=== PATIENT | male | born 1990 | race Hispanic/Latino ===

== ENCOUNTER 2020-11-06 12:38 | Emergency (ER) | payer OTHER, SELFPAY ==
--- OUTSIDE RECORDS SUMMARY | 2020-11-06 12:48 | XMS REPORT | Continuity of Care Document ---
:1990 Author Organization [facility] t Address [address] [place] [address] Care Team Providers Name Role Phone Bia Jean Attending Clinician Donna Morris Attending Clinician Bean Silva Attending Clinician Payers Payer Name Policy Type Policy Number Effective Date Expiration Date S ource Problems Condition Condition Condition Status Onset Resolution Last Treating Co mments Source Name Details Category Date Date Treatment Clinician Date ELEVATED Condition Active 2014-08-29 M emoria LIVER 08-29 11:00:58 l ENZYMES ELEVATED 00:00: Melissa nn LIVER 00 ENZYMES Active 08/29/2014 [facility] Liver Problem Active 2018-12-13 Memor ia enzymes 08-29 14:14:14 l abnormal Liver 00:00: Marco (finding) enzymes 00 abnormal (finding) Active 08/29/2014 Problem 12/13/2018 Data migrated from [place] on 11/13/14. [facility] ELEVATED Diagnosis Active 2014-09-02 M emoria LIVER 08-29 15:01:00 l ENZYMES, ELEVATED 00:00: Una radha FATTY LIVER 00 LIVER ENZYMES, FATTY LIVER Active 08/29/2014 [facility] LOW BACK Condition Active 2014-08-29 M emoria PAIN 07-01 11:00:58 l LOW BACK 00:00: Rony n PAIN 00 Active 07/01/2014 [facility] IMPAIRED Condition Active 2014-08-29 M emoria FASTING 07-01 11:00:58 l GLUCOSE IMPAIRED 00:00: Melissa nn FASTING 00 GLUCOSE Active 07/01/2014 [facility] Impaired Problem Active 2018-12-13 Mem oria fasting 07-01 14:14:14 l glycaemia Impaired 00:00: Her garcia (disorder) fasting 00 glycaemia (disorder) Active 07/01/2014 Problem 12/13/2018 Data migrated from [place] on 11/13/14. [facility] Low back Problem Active 2018-12-13 Mem oria pain 07-01 14:14:14 l (disorder) Low back 00:00: He rmann pain 00 (disorder) Active 07/01/2014 Problem 12/13/2018 Data migrated from [place] on 11/13/14. [facility] 724.2 Diagnosis Active 2014-07-01 Mem oria 07-01 16:10:00 l 724.2 00:00: Marco 00 Active 07/01/2014 [facility] FOOT Diagnosis Active 2013-08-23 Mem o[facility] INJURY 07-23 09:50:00 l FOOT 02:00: Marco INJURY 00 Active 07/23/2013 [facility] PREVENTIVE Condition Active 2014-08-29 [facility] HEALTH 07-19 11:00:58 l CARE 00:00: [place] PREVENTIVE 00 HEALTH CARE Active 07/19/2013 Condition [facility] HY[facility] 11:00:58 l 00:00: [place] HYPERLIPID 00 EMIA Active 07/19/2013 [facility] ALOPECIA Condition Active 2014-08-29 M emoria 07-19 11:00:58 l ALOPECIA 00:00: Rony n 00 Active 07/19/2013 [facility] FATIGUE Condition Active 2014-08-29 Me moria 07-19 11:00:58 l FATIGUE 00:00: Marco 00 Active 07/19/2013 [facility] SCREENING Condition Active 2014-08-29 [facility] EXAMINATIO 3- 11:00:58 l N FOR 00:00: [place] VENEREAL SCREENING 00 DISEASE EXAMINATIO N FOR VENEREAL DISEASE Active 07/19/2013 Condition [facility] FATTY Condition Active 2014-08-13 Mem oria LIVER 3- 15:10:00 l DISEASE, FATTY 00:00: Marco HX OF LIVER 00 DISEASE, HX OF Active 07/19/2013 [facility] TINEA Condition Active 2014-08-29 Mem oria CRURIS - 11:00:58 l TINEA 00:00: Marco CRURIS 00 Active 07/19/2013 [facility] BODY MASS Condition Active 2014-08-29 [facility] INDEX 3- 11:00:58 l 28.0-28.9 BODY 00:00: Marco ADULT MASS INDEX 00 28.0-28.9 ADULT Active 07/19/2013 [facility] FATTY Condition Active 2014-08-29 Mem oria LIVER - 11:00:58 l DISEASE FATTY 00:00: [place] LIVER 00 DISEASE Active 07/19/2013 Condition [facility] Alopecia Problem Active 2018-12-13 Mem oria (disorder) 07-19 14:14:14 l Alopecia 00:00: Rony n (disorder) 00 Active 07/19/2013 Problem 12/13/2018 Data migrated from [place] on 10/08/14. [facility], [facility] Fatigue Problem Active 2018-12-13 Victor Manuel tanner (finding) 07-19 14:14:14 l Fatigue 00:00: [place] (finding) 00 Active 07/19/2013 Problem 12/13/2018 Data migrated from [place] on 10/08/14. [facility] Hyperlipid Problem Active 2018-12-13 M emoria emia 07-19 14:14:14 l (disorder) 00:00: Rony n Hyperlipid 00 emia (disorder) Active 07/19/2013 Problem 12/13/2018 Data migrated from [place] on 10/08/14[facility] Steatosis Problem Active 2018-12-13 Me moria of liver 3-13 14:14:14 l (disorder) 00:00: Rony n Steatosis 00 of liver (disorder) Active 07/19/2013 Problem 12/13/2018 Data migrated from [place] on 11/13/14[facility] Decreased Problem Active 2018-12-13 Me moria vitamin D 14:14:14 l (finding) [place] Decreased vitamin D (finding) Active Problem 12/13/2018 [facility] Obesity Problem Active 2018-12-13 Victor Manuel tanner (disorder) 14:14:14 l Obesity Marco (disorder) Active Problem 12/13/2018 [facility] Patient Problem Active 2018-12-13 Victor Manuel tanner encounter 14:14:14 l status Patient [place] (finding) encounter status (finding) Active Problem 12/13/2018 [facility] Screening Problem Active 2018-12-13 Me moria status 14:14:14 l (finding) [place] Screening status (finding) Active Problem 12/13/2018 [facility] History of Problem Resolve 2018-12-13 2018-12-13 [facility]oria - liver d 3-13 14:14:14 14:14:14 l disease History 00:00: Rony n (context-d of - liver 00 ependent disease category) (context-d ependent category) Resolved 07/19/2013 Problem 12/13/2018 Data migrated from [place] on 11/13/14. [facility] History of Past Illness Condition Condition Condition Status Onset Resolution Last Treating Co mments Source Name Details Category Date Date Treatment Clinician Date Discharge Problem 2013-07-26 2013-07-26 [facility] Diagnosis: 3-17 02:58:53 02:58:53 l foot 05:00: Marco contusion Discharge 00 Diagnosis: foot contusion 07/23/2013 07/26/2013 [facility] Allergies, Adverse Reactions, Alerts Allergy Allergy Status Severity Reaction(s) Onset Inactive Treating Comm ents Source Name Type Date Date Clinician No Known DA Active U [facility]- [facility] [place] [facility] No Known DA Active U 2018- [facility] 1-08 [place] [facility] No Known DA Active U 2015-0 [facility] No Known No Known Active Memori a Medicati Medicati l on on Marco Allergie Allergie s s Social History Social Habit Start Date Stop Date Quantity Comments Source Social History 2015-05-14 2015-05-14 [facility] Cecilia ermann 22:11:29 22:11:29 Smoking Status Start Date Stop Date Source Social History [facility] Medications Ordered Filled Start Stop Current Ordering Indication Dosage Frequency Signature Comments Components Source Medication Medication Date Date Medication? Clinician (SIG) Name Name CYCLOBENZAP Yes Take one Me moria RINE HCL 5 2-23 tablet by l MG TABS 00:00: mouth once Herm radha 00 a day at night MELOXICAM Yes Take one Victor Manuel tanner 7.5 MG TABS 2-23 tablet by l 00:00: mouth once [place] a day with meals as needed pain Acetaminoph Yes 1-2 tab, Me moria en 325 MG / 3-17 PO, Q4-6H, l Hydrocodone 11:22: Pain, # 15 [place] Bitartrate 00 tab, 0 5 MG Oral Refill(s) Tablet [[place] 5/325] Morphine No 4 mg, Memoria 3-17 Route: l 09:21: IVP, Drug form: INJ, ONCE, Dosing Weight 72.727, kg, Priority: STAT, Start date: 07/23/13 4:21:00, Stop date: 07/23/13 4:21:00 LOTRISONE No Apply Memoria 1-0.05 % 3-13 afected l CREA 00:00: area twice [place] 00 a day as needed Vital Signs Vital Name Observation Time Observation Value Comments Source Height 2014-08-29 16:00:58 [facility] Marco [facility] 2014-08-29 [facility] Resp[facility] Rate 2014-08-29 16:00:58 [place] [facility] Marco Temperature Oral (F) 2014-08-29 16:00:58 97.2 F [facility] Systolic (mm Hg) 2014-08-29 16:00:58 Victor Manuel rial Marco Diastolic (mm Hg) 2014-08-29 16:00:58 Mem orial [place] Heart Rate 2014-08-29 16:00:58 [facility] Weight 2014-07-01 19:45:20 [facility] [place] Systolic (mm Hg) 2014-07-01 19:45:20 Victor Manuel rial Marco Diastolic (mm Hg) 2014-07-01 19:45:20 Mem orial Marco Heart Rate 2014-07-01 19:45:20 [facility] [place] Respitory Rate 2014-07-01 19:45:20 Memori al [place] Temperature Oral (F) 2014-07-01 19:45:20 97.2 F [facility] [place] Height 2014-07-01 19:45:20 [facility] [place] Systolic (mm Hg) 2013-07-23 11:30:00 Victor Manuel rial Marco Diastolic (mm Hg) 2013-07-23 11:30:00 Mem orial [place] Temperature Oral (F) 2013-07-23 11:30:00 98.2 F [facility] [place] Heart Rate 2013-07-23 11:30:00 [facility] [place] Respitory Rate 2013-07-23 11:30:00 Memori al [place] Weight 2013-07-23 09:13:00 [facility] [place] Systolic (mm Hg) 2013-07-23 09:13:00 Victor Manuel rial [place] Heart Rate 2013-07-23 09:13:00 [facility] [place] Diastolic (mm Hg) 2013-07-23 09:13:00 Mem orial [place] Respitory Rate 2013-07-23 09:13:00 Memori al Marco Temperature Oral (F) 2013-07-23 09:13:00 98.1 F [facility] [place] Height 2013-07-19 15:02:22 [facility] [place] Respitory Rate 2013-07-19 15:02:22 Memori al [place] Systolic (mm Hg) 2013-07-19 15:02:22 Victor Manuel rial [place] Diastolic (mm Hg) 2013-07-19 15:02:22 Mem orial [place] Weight 2013-07-19 15:02:22 [facility] [place] Heart Rate 2013-07-19 15:02:22 [facility] [place] Procedures This patient has no known procedures. Encounters Start End Encounter Admission Attending Care Care Encounter Source Date/Time Date/Time Type Type Clinicians Facility Department ID 2018-05-26 2018-05-26 Outpatient [facility] [id number] 12:30:00 12:30:00 Linda Mike 2017-04-11 2017-04-11 Outpatient [facility] [id number] 13:15:00 13:15:00 Cee 08 Bia Gan 2014-09-02 2014-09-02 Outpatient Alexandra, [facility] [id number] 14:59:00 23:59:00 Mallorie 01 Donna 2014-07-01 2014-07-01 Outpatient Alexandra, [facility] [id number] 16:09:00 23:59:00 Mallorie 54 Donna 2013-07-23 2013-07-23 Outpatient Ricardo, [facility] [id number] 04:13:00 07:12:00 Nadim B 00 Results Test Description Test Time Test Comments Results Result Comments Source Novel Coronavirus 2018 nCoV 2019-11-12 20:40:00 Test Item Value Reference Range Interpretation Comme nts Novel Coronavirus 2019 nCoV (test code = COVID19) Negative Nega tive Does patient have the clinical criteria consistent with COVID-19? YIs the patient going to be discharged home? HFnzxydzdm2613-00-00 20:10:005.6[facility] YxankgaEmmqtlbhh9273-11-91 20:10:002.070[facility] GafvsceZnqebkock0417-90-92 20:10:16097Tonqrgjs NgcwysnMedtuplot1953-57-33 20:10:25395Iqbenqzx Marco Nwmhldbig8298-52-43 20:10:0037[facility] XqfhbwvTxsdyckid7795-68-12 20:10:0039 [facility] HzjqmxeGjokmjdof2011-22-31 20:10:76844 [facility] 2014-08-13 20:10:003.9 MEQ/LMemorial HxeheapGyxatyjrj2164-45-21 20:10:001.0 [facility] RhfjsxnXcmrdipwl9955-68-93 20:10:0018[facility] 2014-08-13 20:10:00 Test Item Value Reference Range Interpretation Comments BUN/CREAT (test code = BUN/CREAT) 18 1 6-25 [facility] CvydtozMmysqcrvv0567-06-27 20:10:004.3[facility] 2014-08-13 20:10:009.0[facility] BvqmjcnExkcivsfh0864-83-45 20:10:03088Yvogleek YjjwixqEbnftyvhq4909-29-55 20:10:0042[facility] FuczfkfWcqaorfqj3973-31-43 20:10:0073[facility] ZrswoycPbvdmrysod2475-90-60 20:10:0013.1[facility] Marco Xstmhrzncs6046-34-30 20:10:0039.3[facility] JolxxpeLzolioblmf0109-19-84 20:10:00 211 K/CMMMemorial YrejswrGojqoqvmz2649-23-73 17:50:00 Test Item Value Reference Range Interpretation Comments BUN/CREAT (test code = BUN/CREAT) 25 1 6-25 [facility] UomrzfmRejfjtjno4247-45-03 17:50:004.3[facility] 2013-07-19 17:50:009.3[facility] DjvskkgXajdajoqa3832-99-40 17:50:0079[facility] YraqufqCjmohxgkk4085-40-59 17:50:0033[facility] HqzekapBgrcwfnaw3058-83-41 17:50:0072[facility] LzzhdzcXnzzpiauz6890-78-81 17:50:001.10[facility] Marco Pewknwspkw4385-19-88 17:50:0014.1[facility] MohwxanEpjvikddef4002-55-87 17:50:00 43.5[facility] QekgbbsNimlekmoyi3925-22-72 17:50:27515 K/CMMMemorial Marco Crtzzplx1572-75-91 17:50:00Non ReactiveMemorial LkdenspUfjabhib7357-89-93 17:50:00Non ReactiveMemorial YkfevxiLylpxgbeq1152-76-35 17:50:004.560[facility] QvxwxctQilvfitgf4356-55-13 17:50:80596Jbygmgqq XdbyizzEcefhsank0872-67-48 17:50:0068[facility] FsssqejHdzaixrwe8810-55-68 17:50:004.560[facility] Rkpnxldie2869-72-60 17:50:34322Mznnbdel GtyaodfDfvxwucyx5974-21-10 17:50:0068 [facility] PbxmjudPxjbpmyhk0073-76-72 17:50:0054[facility] 2013-07-19 17:50:0082[facility] KbkojoqTnchbnoqn7703-94-02 17:50:57816 MEQ/L [facility] LzopfgbJsjeuyziv7004-21-48 17:50:004.2 [facility] 2013-07-19 17:50:000.8[facility] XiijopsTfedaersx5726-83-34 17:50:0020[facility] [place]
--- NOTE | 2020-11-06 13:23 | EDPHYS ---
Physician Documentation [facility] Name: Corwin Lee Age: 30 yrs Sex: Male : 1990 Arrival Date: 11/06/2020 Time: 12:38 Bed 25 Private MD: ED Physician Colby Tamez HPI: 11/06 13:13 This 30 yrs old Male presents to ER via Ambulatory with complaints of Hand Burn. jmm 13:13 Onset: The symptoms/episode began/occurred acutely, just prior to arrival. Burn type jmm and severity: 2nd degree: approximately 1% total body surface area of second degree injury. This is a 30 year old male with no chronic medical conditions that presents to the ED with complaints of left palm pain which occurred after slipping at a work site. Patient slipped on a melted plastic, placing in the injured palm against the substance to break the fall. . Historical: - Allergies: 12:56 No Known Allergies; ph - Home Meds: 12:56 None [Active]; ph - PMHx: 12:56 None; ph - Immunization history:: Client reports having NOT received the Covid vaccine. - Social history:: Smoking status: Patient denies any tobacco usage or history of. ROS: 13:13 Constitutional: Negative for fever, chills, and weight loss, Cardiovascular: Negative jmm for chest pain, palpitations, and edema, Respiratory: Negative for shortness of breath, cough, wheezing, and pleuritic chest pain. 13:13 MS/extremity: Positive for pain, burn. Exam: 13:16 Head/Face: atraumatic. Eyes: EOMI, no conjunctival erythema appreciated ENT: Moist jmm Mucus Membranes Neck: Trachea midline, Supple Chest/axilla: Normal chest wall appearance and motion. Cardiovascular: Regular rate and rhythm. No edema appreciated Respiratory: Normal respirations, no respiratory distress appreciated Abdomen/GI: Non distended, soft Back: Normal ROM 13:16 MS/ Extremity: Moves all extremities, no obvious deformities appreciated, no edema noted to the lower extremities Neuro: Awake and alert, normal gait Psych: Behavior is normal, Mood is normal, Patient is cooperative and pleasant 13:16 Constitutional: The patient appears alert, awake, anxious, in obvious pain. 13:16 Skin: 2nd degree burn noted to the palmar surface, pain on extension of the palm is appreciated. Vital Signs: 12:53 BP 157 / 103; Pulse 108; Resp 18; Temp 98.4; Pulse Ox 98% on R/A; Weight 106.59 kg; ph Height 5 ft. 7 in. (170.18 cm); 13:23 BP 164 / 134; Pulse 106; Resp 20; Pulse Ox 100% on R/A; Pain 9/10; ld1 14:25 BP 146 / 104; Pulse 95; Resp 20; Pulse Ox 100% on R/A; ld1 12:53 Body Mass Index 36.81 (106.59 kg, 170.18 cm) ph MDM: 12:50 Patient medically screened. [facility] 13:05 Data reviewed: vital signs, nurses notes. Counseling: I had a detailed discussion with george the patient and/or guardian regarding: the historical points, exam findings, and any diagnostic results supporting the discharge/admit diagnosis. 13:18 ED course: I discussed the patient with Dr. Brewster whom accepted the patient for transfer. george . 11/06 13:05 Order name: Saline Lock; Complete Time: 13:23 [facility] Administered Medications: 13:22 Drug: Tetanus-Diphtheria Toxoid Adult 0.5 ml {Bi Consultant: Lob. Exp: ld1 07/11/2022. Lot #: [id number]. } Route: IM; Site: left deltoid; 13:22 Drug: morphine 4 mg Route: IVP; Site: right antecubital; ld1 13:22 Drug: Zofran (Ondansetron) 4 mg Route: IVP; Site: right antecubital; ld1 Disposition: 11/07 07:31 Co-signature as Attending Physician, Colby Tamez MD I agree with the assessment and [facility] plan of care. Disposition Summary: 11/06/20 13:22 Transfer Ordered Transfer Location: [facility] Reason: Higher level of care [facility] Condition: Stable [facility] Problem: new [facility] Symptoms: are unchanged grupo Accepting Physician: Dr. Brewster(11/06/20 14:42) iw Diagnosis - Burn of second degree of multiple sites of left wrist and hand, initial encounter jr8 Forms: - Medication Reconciliation Form george - SBAR form george Signatures: Dispatcher [employer] Colby Soriano MD MD cha Mickail, Joel, PA PA jmm Williams, Irene RN RN iw Allan Zimmerman PA PA jr8 Katherin Oliveira, RN RN ph Niya Angulo RN RN ld1 Corrections: (The following items were deleted from the chart) 11/06 13:44 13:22 Dr. Ney vazquez jr8 13:44 13:22 Burn of second degree of multiple sites of right wrist and hand george jr8 13:57 13:12 CORONAVIRUS+MR.LAB.BRZ ordered. EDMS EDMS 14:42 13:44 Dr. Ney johnson iw
--- NOTE | 2020-11-06 13:23 | ER ---
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 Coronavirus screen: Client denies travel out of the [place] in the last 14 days. At this time, the client does not indicate any symptoms associated with coronavirus-19. Ebola Screen: No symptoms or risks identified at this time. Initial Sepsis Screen: Does the patient meet any 2 criteria? No. Patient's initial sepsis screen is negative. Does the patient have a suspected source of infection? No. Patient's initial sepsis screen is negative. Risk Assessment: Do you want to hurt yourself or someone else? Patient reports no desire to harm self or others. Onset of symptoms was November 06, 2020. 12:53 Method Of Arrival: Ambulatory 12:53 Acuity: DM 2 ph Triage Assessment: 14:26 General: Appears in no apparent distress. uncomfortable. Respiratory: Airway is patent ld1 Respiratory effort is even, unlabored, Respiratory pattern is regular, symmetrical. Injury Description: Historical: - Allergies: 12:56 No Known Allergies; ph - Home Meds: 12:56 None [Active]; ph - PMHx: 12:56 None; ph - Immunization history:: Client reports having NOT received the Covid vaccine. - Social history:: Smoking status: Patient denies any tobacco usage or history of. Screenin:23 Abuse screen: Denies threats or abuse. Denies injuries from another. Nutritional ld1 screening: No deficits noted. Tuberculosis screening: No symptoms or risk factors identified. Fall Risk None identified. Assessment: 13:23 General: Appears in no apparent distress. uncomfortable, Behavior is cooperative, ld1 anxious, crying. Pain: Complains of pain in left hand Pain does not radiate. Pain currently is 9 out of 10 on a pain scale. Quality of pain is described as burning, Pain began 1 hour ago. Is continuous. Neuro: Level of Consciousness is awake, alert, obeys commands, Oriented to person, place, time, situation. Cardiovascular: Capillary refill < 3 seconds Patient's skin is warm and dry. Respiratory: Airway is patent Respiratory effort is even, unlabored, Respiratory pattern is regular, symmetrical. GI: Abdomen is round non-distended. : No signs and/or symptoms were reported regarding the genitourinary system. EENT: No signs and/or symptoms were reported regarding the EENT system. Derm: Skin has blisters on Burn to left palm. Pt states he was working and fell into hot material they were using at work. Reports pain that is 10 out of 10 on a pain scale. Musculoskeletal: No signs and/or symptoms reported regarding the musculoskeletal system. 14:25 Reassessment: Patient appears in no apparent distress at this time. Patient is alert, ld1 oriented x 3, equal unlabored respirations, skin warm/dry/pink. Resting in bed waiting on transfer. RR 20. Vital Signs: 12:53 BP 157 / 103; Pulse 108; Resp 18; Temp 98.4; Pulse Ox 98% on R/A; Weight 106.59 kg; ph Height 5 ft. 7 in. (170.18 cm); 13:23 BP 164 / 134; Pulse 106; Resp 20; Pulse Ox 100% on R/A; Pain 9/10; ld1 14:25 BP 146 / 104; Pulse 95; Resp 20; Pulse Ox 100% on R/A; ld1 12:53 Body Mass Index 36.81 (106.59 kg, 170.18 cm) ph ED Course: 12:38 Patient arrived in ED. as 12:49 Danny Guzman PA is PHCP. jm 12:49 Colby Tamez MD is Attending Physician. jm 12:56 Triage completed. ph 12:56 Arm band placed on Patient placed in an exam room, on a stretcher. ph 13:05 Niya Angulo, ROBYN is Primary Nurse. ld1 13:23 Patient has correct armband on for positive identification. Placed in gown. Bed in low ld1 position. Call light in reach. Side rails up X2. clinical research monitor on. Pulse ox on. NIBP on. 13:23 No provider procedures requiring assistance completed. Inserted saline lock: 20 gauge ld1 in right antecubital area, using aseptic technique. Blood collected. 14:29 Patient transferred, IV remains in place. intact, bleeding controlled, No ld1 redness/swelling at site. Administered Medications: 13:22 Drug: Tetanus-Diphtheria Toxoid Adult 0.5 ml {Retail Store Associate: [employer]. Exp: ld1 07/11/2022. Lot #: [id number]. } Route: IM; Site: left deltoid; 13:22 Drug: morphine 4 mg Route: IVP; Site: right antecubital; ld1 13:22 Drug: Zofran (Ondansetron) 4 mg Route: IVP; Site: right antecubital; ld1 Outcome: 13:22 ER care complete, transfer ordered by . george 14:29 Transferred by ground EMS to [facility]. ld1 14:29 Condition: stable 14:29 Instructed on the need for transfer. ld1 14:42 Patient left the ED. iw Signatures: Danny Guzman PA PA jmm Martinez, Amelia as Williams, Irene, ROBYN CARLSON Katherin Oliveira RN RN Niya Angulo RN RN ld1
[2020-11-06] MEDS ORDERED: MORPHINE 4 MG/ML SYR ONE (13:28)
[2020-11-06] MEDS ORDERED: ONDANSETRON 4 MG/2 ML VIAL ONE (13:28)
[2020-11-06] MEDS ORDERED: TETANUS & DIPHTHERIA TOX,ADULT 0.5 ML VIAL ONE (13:28)
[2020-11-06 15:02] VITALS: TEMP 98.4
[2020-11-06 15:03] VITALS: O2SAT 100
[2020-11-06 15:05] VITALS: BP 146/104
== END 2020-11-06 14:42 | disposition short-term general hospital (02) ==
LOC: ER 12:38
DX: T23.292A Burn of second degree of multiple sites of left wrist and hand, initial encounter (principal); X19.XXXA Contact with other heat and hot substances, initial encounter; Y93.89 Activity, other specified; Y92.89 Other specified places as the place of occurrence of the external cause; Y99.8 Other external cause status; Z23 Encounter for immunization; Z20.822 Contact with and (suspected) exposure to COVID-19
CPT/HCPCS: 90471; 90714; 96375; 96374; 99285; U0003; J2405